=== PATIENT | male | born 1980 | race Caucasian/White ===

== ENCOUNTER 2018-02-09 20:49 | Emergency (ER) | payer BC, SELFPAY ==
[2018-02-09 20:51] VITALS: BP 135/90; PULSE 74; PULSE 75; RESP 18; TEMP 26.6; O2SAT 96; BMI 66.7
--- NOTE | 2018-02-09 20:56 | ED.RN ---
RN CALLED FOR EKG, NO OLD EKGS IN MUSE
[2018-02-09 21:14] VITALS: O2SAT 94
--- NOTE | 2018-02-09 21:14 | EKG12_ITS ---
Test Reason : CP Blood Pressure : / mmHG Vent. Rate : 074 BPM Atrial Rate : 074 BPM P-R Int : 174 ms QRS Dur : 094 ms QT Int : 384 ms P-R-T Axes : 021 043 035 degrees QTc Int : 426 ms Normal sinus rhythm Cannot rule out Anterior infarct , age undetermined Abnormal ECG Confirmed by RUFINA QUISPE, DAJA ([id number]), make up editor PAOLA ZHAO ([id number]) on 02/10/2018 3:24:27 PM Referred By: JASON Confirmed By:DAJA ALMARAZ MD
--- NOTE | 2018-02-09 21:15 | ED.VISSUMM ---
- ER Visit Summary Date of Service: 02/09/18 Chief Complaint: Chest tightness History of Present Illness: The patient is a 37 M continued chest tightness since yesterday afternoon. Intermittent sharp sensation across left-sided chest no arm numbness. No dyspnea no nausea no diaphoresis. No recent travel, surgery, or immobilizations. No history of PE or DVT. Previous tobacco chewing. No family history of MIs at young age. No history of stress test. He is on medications for reflux. No cough. Physical Examination: General: Alert and oriented ?3, no acute distress HEENT: Normocephalic, atraumatic. Moist mucosa membranes Neck: supple, nontender. Cardiovascular: Regular rate and rhythm, no murmurs Respiratory: Normal breath sounds, symmetric, no distress Abdomen: Soft, nontender, nondistended Extremities: Nontender, no edema, pulses intact ?4 Neuro: no focal neurological deficits. Test Results: EKG: Sinus rate of [address] or T wave changes. Chest x-ray negative. Troponin negative. Emergency Department Course and Treatment: EKG normal. Cardiac workup negative. Reevaluation symptoms resolved. He was given aspirin. NADINE score 0 heart scores a 1. Patient given follow-up as an outpatient for reevaluation stress test. Signs and symptoms discussed to return. Treatment Plan: [] Disposition: Discharge Impression: Acute chest pain This note was generated with [employer] dictation software. It may contain incorrect words, spelling, and punctuation that were not noted in review of the chart prior to signing ED Disposition - Plan for ED Patient: Disposition: Home or Assisted Living Chief Complaint: Chest Pain Diagnosis: Chest pain Instructions: ED Chest Pain Atypical Unkn Cause Referrals: NOT,DEFINED [NON-STAFF] - Deepthi Stone, [NON-STAFF] -
[2018-02-09] MEDS: Aspirin 81 MG TAB.CHEW 324 MG PO (21:19)
--- NOTE | 2018-02-09 21:21 | RAD_ITS ---
STUDY: X-RAY CHEST REASON FOR EXAM: Male, 37 years old. Chest pain TECHNIQUE: PA and lateral views of the chest. COMPARISON: None. FINDINGS: There are monitoring devices. The lungs are clear and expanded. There is no demonstrated pleural abnormality. Normal size heart. Normal mediastinum and soila. Normal visualized pulmonary arteries. Normal visualized aortic arch and descending thoracic aorta. Normal visualized thoracic spine. Normal visualized ribs, clavicles, and shoulders. There is no demonstrated abnormality of the visualized soft tissue structures of the upper abdomen. RAD/Chest PA and Lateral IMPRESSION: Normal x-ray examination of the chest. Electronically Signed: Golden John MD at 22:00 EST , Service support ,
[2018-02-09 21:30] LABS: Absolute Lymphocyte Count 2.95 X10^3/ul (0.83-4.51); Absolute Neutrophil Count 3.9 X10^3/uL (2.0-7.7); Basophil# 0.03 X10^3/uL; Basophil% 0.4 % (0-1); Eosinophils% 2.6 % (0-5); Hematocrit 42.9 % (40-54); Hemoglobin 15.3 g/dl (13.0-16.5); Lymphocyte # 2.95 X10^3/ul (4.0); Lymphocyte % 37.8 % (19-41); Mean Corp Hgb Conc 35.7 g/gl (32-36); Mean Corpuscular Hgb 30.4 pg (27.0-32.0); Mean Corpuscular Volume 85.3 fL (80-94); Mean Platelet Vol. 8.9 fl (6.2-12.0); Monocyte# 0.69 X10^3/uL; Monocyte% 8.8 % (0-10); Neutrophil # 3.93 X10^3/uL (2.7-7.7); Neutrophil % 50.3 % (47-70); Platelet Count 254 K/mm3 (150-450); RBC Distribution Width CV 12.5 % (11.6-14.6); RBC Distribution Width SD 38.5 fl (35.1-43.9); Red Blood Count 5.03 M/mm3 (4.6-6.2); White Blood Count 7.8 K/mm3 (4.4-11.0)
[2018-02-09 21:33] LABS: POSITIVE COUNT NO; POSITIVE DIFFERENTIAL NO; POSITIVE MORPHOLOGY NO
[2018-02-09 21:55] LABS: Anion Gap 6 (5-15); BUN 11 mg/dL (7-18); BUN/Creat Ratio 12.4 RATIO (10-20); Calcium,Total 8.5 mg/dL (8.5-10.1); Chloride 104 mmol/L (98-107); Creatinine, Serum 0.89 mg/dL (0.70-1.30); EST Glomerular Filtration Rate 102 mL/min (>60); Est Glom Filt Rate - Afr Amer 123 mL/min (>60); Estimated Creatinine Clearance 112.54 ml/min; Glucose 101 mg/dL (74-106); Potassium 3.9 mmol/L (3.5-5.1); Sodium Level 140 mmol/L (136-145)
[2018-02-09 22:17] VITALS: BP 123/79; PULSE 66; RESP 16; O2SAT 95
[2018-02-09 23:03] VITALS: BP 138/79; PULSE 71; RESP 16; O2SAT 95
[2018-02-09 23:28] VITALS: BP 134/104; PULSE 70; RESP 16; O2SAT 98
== END 2018-02-09 23:29 | disposition home or self-care (01) ==
PROVIDERS: Emergency Provider Emergency Medicine
DX: R07.89 Other chest pain (principal); K21.9 Gastro-esophageal reflux disease without esophagitis
CPT/HCPCS: 71046; 80048; 84484; 85025; 93005; 99284; A4216

== ENCOUNTER 2020-07-05 10:19 | Outpatient (RCR) | payer BC, SELFPAY | END 2020-09-05 23:59 | LOC: IMMUN 10:19 | PROVIDERS: Visit Provider Family Medicine | DX: Z23 Encounter for immunization (principal) | CPT/HCPCS: 0001A; 0002A; 91300 ==

== ENCOUNTER 2020-11-24 06:14 | Day surgery (SDC) | payer BC, SELFPAY ==
[2020-10-25 16:01] VITALS: BMI 66.7
[2020-11-24] VITALS (7 sets, daily range): BP systolic 116–133; BP diastolic 65–92; PULSE 70–78; RESP 16; TEMP 36.1–36.7; O2SAT 95–98; BMI 35.1
--- NOTE | 2020-11-24 06:52 | HP.PCM_ITS ---
History and Physical Date of Admission: 11/24/20 Intake Visit Reasons: C-Scope Family HX Chief Complaint: COLONOSCOPY, FAM HX POLYPS/ GERD Kitchen Utility Associate Required: No Is patient in pain?: No Allergies No Known Allergies Allergy (Verified 10/25/20 16:00) Medications omeprazole 20 mg PO DAILY 02/09/18 [History Confirmed 10/25/20] lorazepam 1 mg tablet 1 mg PO DAILY PRN #3 tab 10/25/20 [Rx Confirmed 10/25/20] PFSH Medical History (Updated 10/25/20 @ 16:[address] Jonathan Parrish MD) GERD (gastroesophageal reflux disease) Surgical History (Updated 10/25/20 @ 15:59 by Ana Thornton) History of excision of pilonidal cyst Family History (Updated 10/25/20 @ 15:59 by Ana Thornton) Father No problems noted. Social History Smoking Status: Never smoker HPI HPI HPI: KD BULL, is a 40 M who presents to the office today for surgical consultation regarding a screening colonoscopy as well ask consultation regar ding intractable gastroesophageal reflux disease as well as consultation regarding bilateral partial vasectomy as a means of sterilization. The patient has been on utmi-wrn-esauukk omeprazole or Prilosec therapy for at least 19 years. If he misses 1 or 2 days he has significant recurrent heartburn. He does note that if he loses about 20 pounds his reflux symptoms are better but that he continues to require medication every third day. He has never had an upper endoscopy. He reminds me that his mother has Melchor's. The patient also never has had a colonoscopy. He denies bright red blood per r ectum or melena. No abdominal pain. No unexpected weight loss. He does have a father and a brother both who had multiple colon polyps Finally he would like to consider sterilization in the form of bilateral partial vasectomy The patient is referred by Kelle Fatima CNP and a written copy my surgical consult recommendations will be returned to her ROS General General: No weight change, appetite, fatigue, colon cancer, breast cancer or weakness HEENT HEENT: No difficulty swallowing, eye injury, eye surgery, swollen glands or hoarseness Endo Endocrine: No thyroid disease, diabetes mellitus, thyroid cancer, Hair loss, heat intolerance or cold intolerance Musc Musculoskeletal: No back problems, arthritis, rheumatoid arthritis, gout or joint pain Cardio Cardiovascular: No murmur, pacemaker, heart disease, atrial fibrillation, high blood pressure, heart attack, heart stent, palpitations, shortness of breat with exertion or chest pain Psych Psychiatric: No depression, anxiety or hearing voices Resp Respiratory: No shortness of breath, No sleep apnea, No cough, No COPD, No asthma, No emphysema and No wheezing Gastro Gastrointestinal: No abdominal pain, No nausea or vomiting, No diarrhea, No constipation, No blood in stool, Yes acid reflux, No hemorrhoids, No ulcers, No gallbladder problem and No black,tarry stools Jose Hematologic: No blood thinners, No blood disorders, No bleeding, No anemia and No blood clots Neuro Neurologic: No weakness Exam Const General: cooperative, healthy appearing, comfortable and no acute distress Nutritional Appearance: obese Orientation: alert and awake HENMT Head: normal to inspection Eyes General: appearance normal, both eyes and all related structures Resp Effort & Inspection: normal respiratory effort Auscultation: clear to auscultation bilaterally Cardio Rate: regular rate Rhythm: regular rhythm GI Palpation: soft and no hepatosplenomegaly Other: Testicles are descended, scrotum is foreshortened, no palpable masses, no inguinal hernias noted Musc Cervical Spine: normal cervical lordosis Skin General: no rashes or lesions noted Neuro Cognition: normal cognition Extrem General: no calf tenderness Psych Appearance: grossly normal Assessment and Plan Assessment and Plan (1) GERD (gastroesophageal reflux disease): Status: Acute Qualifiers: Esophagitis presence: esophagitis presence not specified Qualified C ode(s): K21.9 - Gastro-esophageal reflux disease without esophagitis (2) Family history of polyps in the colon: Status: Acute (3) Sterilization consult: Status: Acute Plan Details Other Medications: New: lorazepam (Ativan) 1 HOUR PRIOR TO PROCEDURE 1 mg PO DAILY PRN 3 tabs 0RF anxiety Additional Comments: I recommend to the patient a bilateral partial vasectomy. In detail discussed the technique, benefit, risks, alternatives. In addition he has been provided written descriptive information. No guarantees of success have been offered. He is aware that I consider this to be a permanent procedure. His increased body habitus will make this more challenging. We will schedule and proceed at his discretion. He is aware that post procedure semen analysis will be required. The patient has had long-term use of a PPI. He has intractable GERD. We discussed weight loss recommendations. We additionally discussed potential future bariatric referral for combined weight loss and reflux procedure. The patient does have a family history of Melchor's. I definitively recommend a esophagogastroduodenoscopy with possible biopsy or polyp removal as indicated. In addition the patient has a strong family history of colon polyps in both brother and father. Multiple polyps were identified. Fortunately there is no current family history of colon cancer. I do recommend a colonoscopy with possible biopsy or polypectomy as indicated. I recommend that we perform both the upper and lower endoscopies combined and utilize monitored anesthesia care. He has had an opportunity to ask no questions answered. I appreciate the opportunity of assisting with the surgical care. Copy: Kelle Fatima, VICTORINO Parrish M.D., F.A.C.S. I have re-examined the patient. There are no clinical changes since date of exam.
[2020-11-24] MEDS: Lactated Ringers 1,000 ML 100 ML IV (07:00)
--- NOTE | 2020-11-24 07:30 | IMM_PTH ---
PATIENT: KD BULL LOC: EN U#:[id number] AGE/SX: 40/M ROOM: RE11/24/[address]: Dr. Jonathan Parrish MD : 1980 BED: DIS: 11/24/2020 SPEC #: [id number] RECD: 11/24/20 11:25 STATUS: MILLER REQ #: [id number] OLIVERIO: 11/24/20 07:[address]: Jonathan Parrish DEPT: IMMUNOHISTOCHEMISTRY RECD BY: Shena Marvin ENTERED: 11/24/20 11:25 SP TYPE: IMMUNO OTHR DR: Kelle Fatima, DRAFTER CIVIL-C Tissues: B - Stomach, NOS Procedures: H Pylori (initial) PHYSICIAN & INSTITUTION [place] [address] SPECIMEN INFORMATION: Tissue Source: B ? Antrum biopsy Clinical Info: GERD Specimen Number: [id number] CPT code: 14681 METHODOLOGY: Deparaffinized sections of prefer/formalin-fixed tissue or PAP/DQ stained slides are incubated with monoclonal/polyclonal antibodies/oligonucleotide probes. Localization is made via biotin free immunoperoxidase method. Appropriate controls are performed and reacted as expected. Results on target cell population are indicated in the following table: RESULTS: ANTIBODY / CLONE RESULT Block B H Pylori (polyclonal) negative These tests were developed and their performance characteristics determined by [facility]. They may not have been cleared or approved by the U.S. Food and Drug Administration. The FDA has determined that such clearance or approval is not necessary. INTERPRETATION: B. Antrum biopsy: Negative for Helicobacter pylori organisms. AM:mariusz 11/27/2020
--- NOTE | 2020-11-24 07:30 | EGD_PTH ---
PATIENT: KD BULL LOC: EN U#:[id number] AGE/SX: 40/M ROOM: RE11/24/[address]: Dr. Jonathan Parrish MD : 1980 BED: DIS: 11/24/2020 SPEC #: [id number] RECD: 11/24/20 10:33 STATUS: MILLER URSULA #: [id number] OLIVERIO: 11/24/20 07:[address]: Jonathan Parrish DEPT: SURGICAL PATHOLOGY RECD BY: Dawn Farah ENTERED: 11/24/20 12:37 SP TYPE: EGD BIOPSY OTHR DR: VIVIAN Gregorio Tissues: A - Duodenum, NOS B - Gastric mucous membrane C - Gastric mucous membrane D - Esophagus, NOS E - Esophagus, NOS Procedures: Special Stain Group II Surgery Specimen Level IV Alcian Blue/PAS (control) HEADER OPERATION: Colonoscopy, EGD ([facility] [place]) PRE-OP DIAGNOSIS: GERD; family history of polyps in colon TISSUE SUBMITTED: A - Duodenum biopsy, B - Antrum biopsy for histo and H. pylori, C - Greater curvature polyp biopsy, D - Distal esophagus biopsy, E - Mid esophagus biopsy MICROSCOPIC DIAGNOSIS A. Duodenum, biopsy: Mild Edil?s gland hyperplasia. B. Gastric antrum, biopsy: Mild chronic gastritis. See comment. C. Gastric polyp, greater curvature, biopsy: Fundic gland polyp. D. Distal esophagus, biopsy: Gastroesophageal junction mucosa with mild chronic inflammation. No evidence of intestinal metaplasia. Focal changes of reflux. See comment. E. Mid esophagus, biopsy: Fragment of benign squamous mucosa. No evidence of inflammation. AM:mariusz 11/27/2020 COMMENT B. The results of immunohistochemistry for Helicobacter pylori will be reported separately ([id number]). D. Alcian blue/PAS stain with matched control supports the above diagnosis. MICROSCOPIC DESCRIPTION Slides are reviewed. GROSS DESCRIPTION A - Received in fixative is one container labeled with the patient's name and designated duodenum biopsy. The specimen consists of one irregular fragment of light ye soft tissue that measures 0.3 x 0.3 x 0.1 cm. The specimen is totally submitted in one cassette. B - Received in fixative is one container labeled with the patient's name and designated antrum biopsy. The specimen consists of one irregular fragment of light ye soft tissue that measures 0.4 x 0.2 x 0.1 cm. The specimen is totally submitted in one cassette. C - Received in fixative is one container labeled with the patient's name and designated greater curvature polyp biopsy. The specimen consists of one irregular fragment of light ye soft tissue that measures 0.3 x 0.3 x 0.1 cm. The specimen is totally submitted in one cassette. D - Received in fixative is one container labeled with the patient's name and designated distal esophagus biopsy. The specimen consists of multiple irregular fragments of light ye soft tissue that in aggregate measure 2 x 0.5 x 0.1 cm. The specimen is totally submitted in one cassette. E - Received in fixative is one container labeled with the patient's name and designated mid esophagus biopsy. The specimen consists of one irregular fragment of light ye soft tissue that measures 0.4 x 0.2 x 0.1 cm. The specimen is totally submitted in one cassette. / SJ:rg 11/24/20 TC:3 CPT: 73155 x5, 99082
--- NOTE | 2020-11-24 08:10 | OP.CCLET_ITS ---
11/24/2020 No Primary Care Physician Re : Upper GI endoscopy procedure for Nigel Dailey Dear Care Physician This procedure was performed on Tuesday, November 24, 2020. My impressions and recommendations are as follows: Impressions : - Z-line irregular, 39 cm from the incisors. - Small hiatal hernia. - Esophageal mucosal changes suspicious for short-segment Melchor's esophagus. Biopsied. Middle third esophagus biopsied - Normal stomach. Biopsied. - A few gastric polyps. Resected and retrieved. - Normal examined duodenum. Biopsied. Recommendations : - Discharge patient to home. - Resume previous diet. - Continue present medications. - Return to my office in 1 week. My findings are described in the full procedure note, which is enclosed. If I can be of further assistance, please feel free to contact me at Doctor phone number(s): Work: . Sincerely, Jonathan Parrish MD 11/24/2020 8:09:56 AM This report has been signed electronically.
--- NOTE | 2020-11-24 08:10 | OP.EGD_ITS ---
Patient Name: Nigel Dailey Procedure Date: 11/24/2020 7:32 AM Date of : 1980 Age: 40 Procedure: Upper GI endoscopy Indications: Suspected gastro-esophageal reflux disease Providers: Jonathan Parrish MD Medicines: See the Anesthesia note for documentation of the administered medications Complications: No immediate complications. Procedure: Pre-Anesthesia Assessment: - Prior to the procedure, a History and Physical was performed, and patient medications and allergies were reviewed. The patient's tolerance of previous anesthesia was also reviewed. The risks and benefits of the procedure and the sedation options and risks were discussed with the patient. All questions were answered, and informed consent was obtained. Prior Anticoagulants: The patient has taken no previous anticoagulant or antiplatelet agents. ASA Grade Assessment: II - A patient with mild systemic disease. After reviewing the risks and benefits, the patient was deemed in satisfactory condition to undergo the procedure. After obtaining informed consent, the endoscope was passed under direct vision. Throughout the procedure, the patient's blood pressure, pulse, and oxygen saturations were monitored continuously. The gastroscope was introduced through the mouth, and advanced to the second part of duodenum. The upper GI endoscopy was accomplished without difficulty. The patient tolerated the procedure well. Scope In: 7:39:30 AM Scope Out: 7:47:56 AM Total Procedure Duration Time 0 hours 8 minutes 26 seconds Findings: The Z-line was irregular and was found 39 cm from the incisors. A small hiatal hernia was present. There were esophageal mucosal changes suspicious for short-segment Melchor's esophagus present in the lower third of the esophagus. The maximum longitudinal extent of these mucosal changes was 3 cm in length. Mucosa was biopsied with a cold forceps for histology in 4 quadrants at intervals of 1.5 cm in the lower third of the esophagus. The entire examined stomach was normal. Biopsies were taken with a cold forceps for histology. A few 6 mm sessile polyps with no bleeding and no stigmata of recent bleeding were found on the greater curvature of the stomach. The polyp was removed with a cold biopsy forceps. Resection and retrieval were complete. The examined duodenum was normal. Biopsies were taken with a cold forceps for histology. The middle third of the esophagus was normal. Biopsies were taken with a cold forceps for histology. Impression: - Z-line irregular, 39 cm from the incisors. - Small hiatal hernia. - Esophageal mucosal changes suspicious for short-segment Melchor's esophagus. Biopsied. Middle third esophagus biopsied - Normal stomach. Biopsied. - A few gastric polyps. Resected and retrieved. - Normal examined duodenum. Biopsied. Recommendation: - Discharge patient to home. - Resume previous diet. - Continue present medications. - Return to my office in 1 week. Procedure Code(s): --- Professional --- 90553, Esophagogastroduodenoscopy, flexible, transoral; with biopsy, single or multiple Diagnosis Code(s): --- Professional --- K22.8, Other specified diseases of esophagus K44.9, Diaphragmatic hernia without obstruction or gangrene K31.7, Polyp of stomach and duodenum CPT copyright 2017 [employer]. All rights reserved. The codes documented in this report are preliminary and upon assembly line leader review may be revised to meet current compliance requirements. Jonathan Parrish MD 11/24/2020 8:09:56 AM This report has been signed electronically. Number of Addenda: 0 Note Initiated On: 11/24/2020 7:32 AM
--- NOTE | 2020-11-24 08:14 | OP.COLON_ITS ---
Patient Name: Nigel Dailey Procedure Date: 11/24/2020 7:48 AM Date of : 1980 Age: 40 Procedure: Colonoscopy Indications: Screening for colorectal malignant neoplasm Providers: Jonathan Parrish MD Medicines: See the Anesthesia note for documentation of the administered medications Patient Profile: Last Colonoscopy: none. The patient's first colonoscopy is today. Complications: No immediate complications. Procedure: Pre-Anesthesia Assessment: - Prior to the procedure, a History and Physical was performed, and patient medications and allergies were reviewed. The patient's tolerance of previous anesthesia was also reviewed. The risks and benefits of the procedure and the sedation options and risks were discussed with the patient. All questions were answered, and informed consent was obtained. Prior Anticoagulants: The patient has taken no previous anticoagulant or antiplatelet agents. ASA Grade Assessment: II - A patient with mild systemic disease. After reviewing the risks and benefits, the patient was deemed in satisfactory condition to undergo the procedure. After I obtained informed consent, the scope was passed under direct vision. Throughout the procedure, the patient's blood pressure, pulse, and oxygen saturations were monitored continuously. The colonoscope was introduced through the anus and advanced to the cecum, identified by appendiceal orifice and ileocecal valve. The colonoscopy was performed without difficulty. The patient tolerated the procedure well. The quality of the bowel preparation was adequate to identify polyps. The ileocecal valve and the appendiceal orifice were photographed. Scope In: 7:51:14 AM Scope Withdrawal Time 0 hours 6 minutes 42 seconds Scope Out: 8:01:46 AM Total Procedure Duration Time 0 hours 10 minutes 32 seconds Findings: The digital rectal exam findings include non-thrombosed internal hemorrhoids and internal hemorrhoids that prolapse with straining, but spontaneously regress to the resting position (Grade II). Pertinent negatives include normal prostate (size, shape, and consistency). A few diverticula were found in the entire colon. The exam was otherwise without abnormality. Impression: - Non-thrombosed internal hemorrhoids and internal hemorrhoids that prolapse with straining, but spontaneously regress to the resting position (Grade II) found on digital rectal exam. - Diverticulosis in the entire examined colon. - The examination was otherwise normal. - No specimens collected. Recommendation: - Discharge patient to home. - Resume previous diet. - Continue present medications. - Repeat colonoscopy in 10 years for screening purposes. Procedure Code(s): --- Professional --- 20012, Colonoscopy, flexible; diagnostic, including collection of specimen(s) by brushing or washing, when performed (separate procedure) Diagnosis Code(s): --- Professional --- Z12.11, Encounter for screening for malignant neoplasm of colon K64.1, Second degree hemorrhoids K57.30, Diverticulosis of large intestine without perforation or abscess without bleeding CPT copyright 2017 [employer]. All rights reserved. The codes documented in this report are preliminary and upon tow boat captain review may be revised to meet current compliance requirements. Jonathan Parrish MD 11/24/2020 8:13:49 AM This report has been signed electronically. Number of Addenda: 0 Note Initiated On: 11/24/2020 7:48 AM
--- NOTE | 2020-11-24 08:14 | OP.CCLET_ITS ---
11/24/2020 No Primary Care Physician Re : Colonoscopy procedure for Nigel Dailey Dear Care Physician This procedure was performed on Tuesday, November 24, 2020. My impressions and recommendations are as follows: Impressions : - Non-thrombosed internal hemorrhoids and internal hemorrhoids that prolapse with straining, but spontaneously regress to the resting position (Grade II) found on digital rectal exam. - Diverticulosis in the entire examined colon. - The examination was otherwise normal. - No specimens collected. Recommendations : - Discharge patient to home. - Resume previous diet. - Continue present medications. - Repeat colonoscopy in 10 years for screening purposes. My findings are described in the full procedure note, which is enclosed. If I can be of further assistance, please feel free to contact me at Doctor phone number(s): Work: . Sincerely, Jonathan Parrish MD 11/24/2020 8:13:49 AM This report has been signed electronically.
== END 2020-11-24 08:51 | disposition home or self-care (01) ==
LOC: EN 06:15 → AC 06:15
PROVIDERS: PCP Nurse Practitioner Family; Referring Provider Nurse Practitioner Family; Visit Provider Surgery
PROC: 0DJD8ZZ Inspection of Lower Intestinal Tract, Via Natural or Artificial Opening Endoscopic (ICD-10-PCS; CPT 45378; principal; 2020-11-24 07:25)
DX: Z12.11 Encounter for screening for malignant neoplasm of colon (principal); K64.1 Second degree hemorrhoids; K57.30 Diverticulosis of large intestine without perforation or abscess without bleeding; K31.89 Other diseases of stomach and duodenum; K31.7 Polyp of stomach and duodenum; K29.50 Unspecified chronic gastritis without bleeding; K44.9 Diaphragmatic hernia without obstruction or gangrene; K22.8 Other specified diseases of esophagus; K21.9 Gastro-esophageal reflux disease without esophagitis; G47.30 Sleep apnea, unspecified; E66.9 Obesity, unspecified; Z68.35 Body mass index [BMI] 35.0-35.9, adult; Z79.899 Other long term (current) drug therapy; Z87.891 Personal history of nicotine dependence; Z83.71 Family history of colonic polyps
CPT/HCPCS: 43239; 45378; 88305; 88313; 88342; J7120